=== PATIENT | male | born 1980 | race Caucasian/White ===

== ENCOUNTER 2017-05-16 11:04 | Emergency (ER) | payer BC ==
--- NOTE | 2017-05-16 11:19 | EDM.PDOC ---
ED HPI GENERAL MEDICAL PROBLEM - General Chief Complaint: General Stated Complaint: ANXIOUS Time Seen by Provider: 05/16/17 11:18 Source of Information: Reports: Patient History Limitations: Reports: No Limitations - History of Present Illness INITIAL COMMENTS - FREE TEXT/NARRATIVE: HISTORY AND PHYSICAL: []37-year-old male presenting with heaviness pressure to his chest feels like having heart attack but he is so anxious he thinks it is a panic attack History of Present Illness: []Patient was lying in bed approximately one hour ago and started having this feeling Review of Systems: As per history of present illness and below otherwise all systems reviewed and negative. Past medical history: As per history of present illness and as reviewed below otherwise noncontributory. Surgical history: As per history of present illness and as reviewed below otherwise noncontributory. Social history: No reported history of drug or alcohol abuse. Family history: As per history of present illness and as reviewed below otherwise noncontributory. Physical exam: Alert and oriented poor eye contact and questions appropriately in full sentences no shortness of breath HEENT: Atraumatic, normocehpalic, pupils reactive, negative for conjunctival pallor or scleral icterus, mucous membranes moist, throat clear, neck supple, nontender, trachea midline. Lungs: Clear to auscultation, breath sounds equal bilaterally, chest non tender. Heart: S1S2, regular, negative for clicks, rubs, or JVD. Abdomen: Soft, nondistended, nontender. Negative for masses or hepatossplenmegaly. Negative for costovertebral tenderness. Pelvis: Stable nontender. Genitourinary: Deferred. Rectal: Deferred Extremities: Atraumatic, negative for cords or calf pain. Neurovascular unremarkable. Neuro: Awake, alert, oriented. Cranial nerves II through XII unremarkable. Cerebellum unremarkable. Motor and sensory unremarkable throughout. Exam nonfocal. Patient is feeling better since he was given the lorazepam, discussed with him all cardiac factors appear to be negative Patient relates that he is concerned about his son and he is 13 hours away working here in [place], he is agreeable to seek some counseling and will send a referral for Amanda Purvis NP Diagnostics: [EKG CBC CMP troponin and TSH chest x-ray] Therapeutics: [Lorazepam 1 mg by mouth] Impression: [Anxiety Panic attack] Plan: [Discharged to home Small amount of lorazepam Referral to Amanda Purvis NP] Definitive disposition and diagnosis as appropriate pending reevaluation and review of above. Onset: Today, Sudden Duration: Hour(s): Location: Reports: Chest, Generalized - Related Data Allergies Allergy/AdvReac Type Severity Reaction Status Date / Time No Known Allergies Allergy Verified 05/16/17 11:17 Home Meds: Home Meds Anti-Infalmmatory Med 0 mg PO TID 05/16/17 [History] ED ROS GENERAL - Review of Systems Review Of Systems: ROS reveals no pertinent complaints other than HPI. ED EXAM, GENERAL - Physical Exam Exam: See Below (See dictation) Course - Vital Signs Last Recorded V/S: Last Vital Signs Temp 36.4 C 05/16/17 11:13 Pulse 104 H 05/16/17 11:13 Resp 19 05/16/17 11:13 BP 143/90 H 05/16/17 11:13 Pulse Ox 99 05/16/17 11:13 - Orders/Labs/Meds Orders: Active Orders 24 hr Category Date Time Status EKG Documentation Completion [RC] STAT Care 05/16/17 11:22 Active Chest 1V Frontal [CR] Stat Exams 05/16/17 11:22 Taken COMPREHENSIVE METABOLIC PN,CMP [CHEM] Stat Lab 05/16/17 11:43 Results TROPONIN I [CHEM] Stat Lab 05/16/17 11:43 Results TSH [CHEM] Stat Lab 05/16/17 11:43 Results Labs: Laboratory Tests 05/16/17 05/16/17 Range/Units 11:43 11:43 WBC 3.59 L (4.0-11.0) K/uL RBC 5.11 (4.50-5.90) M/uL Hgb 17.1 H (13.0-17.0) g/dL Hct 48.8 (38.0-50.0) % MCV 95.5 (80.0-98.0) fL MCH 33.5 H (27.0-32.0) pg MCHC 35.0 (31.0-37.0) g/dL RDW Std Deviation 45.9 (28.0-62.0) fl RDW Coeff of Margy 13 (11.0-15.0) % Plt Count 193 (150-400) K/uL MPV 10.10 (7.40-12.00) fL Neut % (Auto) 56.8 (48.0-80.0) % Lymph % (Auto) 27.6 (16.0-40.0) % [place] % (Auto) 11.4 (0.0-15.0) % Eos % (Auto) 3.9 (0.0-7.0) % Baso % (Auto) 0.3 (0.0-1.5) % Neut # (Auto) 2.0 (1.4-5.7) K/uL Lymph # (Auto) 1.0 (0.6-2.4) K/uL [place] # (Auto) 0.4 (0.0-0.8) K/uL Eos # (Auto) 0.1 (0.0-0.7) K/uL Baso # (Auto) 0.0 (0.0-0.1) K/uL Nucleated RBC % 0.0 /100WBC Nucleated RBCs # 0 K/uL Sodium 143 (136-146) mmol/L Potassium 3.6 (3.5-5.1) mmol/L Chloride 109 (98-110) mmol/L Carbon Dioxide 22 (21-31) mmol/L BUN 11 (6.0-23.0) mg/dL Creatinine 1.2 (0.6-1.5) mg/dL Est Cr Clr Drug Dosing 96.09 mL/min Estimated GFR (MDRD) > 60.0 ml/min Glucose 142 H (60-110) mg/dL Calcium 9.2 (8.8-10.8) mg/dL Total Bilirubin 0.9 (0.1-1.5) mg/dL AST 24 (5-40) IU/L ALT 27 (8-54) IU/L Alkaline Phosphatase 68 (40-150) Troponin I < 0.10 (0.0-0.29) NG/ML Total Protein 7.1 (6.0-8.0) g/dL Albumin 4.2 (3.5-5.0) g/dL Globulin 2.9 (2.0-3.5) g/dL Albumin/Globulin Ratio 1.5 (1.3-2.8) Meds: Medications Discontinued Medications Generic Name Dose Route Start Last Admin Trade Name Freq PRN Reason Stop Dose Admin Lorazepam 1 mg 05/16/17 11:21 05/16/17 11:27 Ativan PO 05/16/17 11:22 1 mg ONETIME ONE Administration Departure - Departure Time of Disposition: 12:23 Disposition: Home, Self-Care 01 Condition: Good Clinical Impression: Anxiety, Panic attack as reaction to stress - Discharge Information Referrals: PCP,None [Primary Care Provider] - Amanda Purvis NP [Nurse Practitioner] - Forms: ED Department Discharge Additional Instructions: The following information is given to patients seen in the emergency department who are being discharged to home. This information is to outline your options for follow-up care. We provide all patients seen in our emergency department with a follow-up referral. The need for follow-up, as well as the timing and circumstances, are variable depending upon the specifics of your emergency department visit. If you don't have a primary care physician on staff, we will provide you with a referral. We always advise you to contact your personal physician following an emergency department visit to inform them of the circumstance of the visit and for follow-up with them and/or the need for any referrals to a consulting specialist. The emergency department will also refer you to a specialist when appropriate. This referral assures that you have the opportunity for followup care with a specialist. All of these measure are taken in an effort to provide you with optimal care, which includes your followup. Under all circumstances we always encourage you to contact your private physician who remains a resource for coordinating your care. When calling for followup care, please make the office aware that this follow-up is from your recent emergency room visit. If for any reason you are refused follow-up, please contact the [facility] emergency department at and asked to speak to the emergency department charge nurse. He was found to have increased anxiety and panic attack while in the emergency department Referral to Amanda Purvis NP Small amount of lorazepam per prescription - My Orders Last 24 Hours: My Active Orders 05/16/17 11:22 EKG Documentation Completion [RC] STAT Chest 1V Frontal [CR] Stat 05/16/17 11:43 COMPREHENSIVE METABOLIC PN,CMP [CHEM] Stat TROPONIN I [CHEM] Stat TSH [CHEM] Stat - Assessment/Plan Last 24 Hours: My Active Orders 05/16/17 11:22 EKG Documentation Completion [RC] STAT Chest 1V Frontal [CR] Stat 05/16/17 11:43 COMPREHENSIVE METABOLIC PN,CMP [CHEM] Stat TROPONIN I [CHEM] Stat TSH [CHEM] Stat
[2017-05-16] MEDS ORDERED: LORazepam 1 MG Tab PO ONE (11:21)
[2017-05-16 12:10] LABS: CHLORIDE,CL 109 mmol/L (98-110); SODIUM,NA 143 mmol/L (136-146)
--- NOTE | 2017-05-17 15:46 | CR ---
EXAM DATE: 05/16/17 PATIENT'S AGE: 37 Patient: AMIE VAUGHN Facility: [place], [place] Site . Site : [id number] Study: XRay Chest [id number] 12:02:22 PM Ordering Physician: Doctor Loo Final Report: INDICATION: Pain and shortness of breath TECHNIQUE: Chest 1 view COMPARISON: None FINDINGS: CARDIOVASCULATURE AND MEDIASTINUM: Heart size and vasculature are normal in caliber and appearance. Mediastinum is within normal limits. LUNGS AND PLEURAL SPACE: Lungs are clear. No sign of infiltrate or mass. No sign of pleural effusion. No pneumothorax. BONES AND SOFT TISSUES: No significant findings. IMPRESSION: No acute or significant findings. Dictated by Camron White MD @ 05/16/2017 12:27:32 PM Dictated by: Camron White MD @ 05/16/2017 12:27:34 (Electronic Signature) Report Signed by Proxy. MAMTA
== END 2017-05-16 12:36 | disposition home or self-care (01) ==
LOC: MW.ED 11:04
DX: F41.0 Panic disorder [episodic paroxysmal anxiety] (principal); F43.9 Reaction to severe stress, unspecified
CPT/HCPCS: 36415; 71010; 80053; 84443; 84484; 85025; 93005; 99284; A9270; 99282